=== PATIENT | female | born 1985 | race Caucasian/White ===

== ENCOUNTER 2016-11-03 04:58 | Emergency (ER) | payer SELFPAY ==
[~2016-11-03] VITALS: Ht 162.6 cm; Wt 104.0 kg
[~2016-11-03 04:58] MED LIST: Z.0.NO CURRENT MEDS
[2016-11-03 05:00] VITALS: BP 165/87; PULSE 104; RESP 18; TEMP 98.5; O2SAT 98
[2016-11-03] MEDS ORDERED: ALBU0.08 NEB (05:50)
[2016-11-03] MEDS ORDERED: ALBU6.7H INH (05:50)
[2016-11-03] MEDS ORDERED: PRED-503 PO (05:50)
[2016-11-03] MEDS ORDERED: ZITH250T PO (05:50)
--- NOTE | 2016-11-03 05:52 | PD ---
HPI Chief Complaint: Cold / Flu Symptoms Time Seen by Provider: 05:50 Travel History International Travel<30 days: No Contact w/Intl Traveler<30days: No Traveled to known affect area: No History of Present Illness HPI 31-year-old white female presents to emergency department with a two-week history of cough and congestion. She states that she was seen at a urgent care 1 week ago when she initially had gotten sick. She was given a prescription for cough medicine. She states that her symptoms now have progressed to include subjective fever and chills, green sputum, shortness of breath, wheezing , pleuritic chest wall pain, and a single episode of posttussive emesis. She has been using her son's albuterol nebulizer and her 's albuterol MDI. Symptoms are worse with cough and activity. Improvement with albuterol. She denies any nausea. No abdominal pain. No dysuria or frequency. No rashes or lesions. PFSH Past Medical History Medical History: Denies Significant Hx Blood Disorders: No Tetanus Vaccination: < 5 Years ?: Not LMP: 3 WKS AGO : 1 Para: 1 Past Surgical History Surgical History: No Previous Surgery Social History Alcohol Use: No Tobacco Use: Yes (/2 PPD) Substance Use: No Allergies-Medications (Allergen,Severity, Reaction): Coded Allergies: No Known Allergies (Verified , 11/03/16) Reported Meds & Prescriptions Reported Meds & Active Scripts Active Zithromax (Azithromycin) 250 Mg Tab 250 Mg PO DIRECTED Take 2 tabs (500 mg) on day 1 then 1 tab daily x 4 days. Deltasone (Prednisone) 20 Mg Tab 20 Mg PO TID Proventil Hfa 6.7 GM Inh (Albuterol Sulfate) 90 Mcg/Act Aer 2 Puff INH Q6H PRN Albuterol Neb (Albuterol Sulfate) 2.5 Mg/3 Ml Neb 2.5 Mg NEB Q4HR NEB While awake Review of Systems Except as stated in HPI: all other systems reviewed are Neg Physical Exam Narrative GENERAL: Well-developed, well-nourished in no acute distress. Nontoxic appearing. HEAD: Normocephalic, atraumatic. EYES: Pupils equal round and reactive. Extraocular motions intact. No scleral icterus. No injection or drainage. ENT: TMs clear without erythema. The external auditory canals clear. Nose: clear . Posterior pharynx is pink and moist. No tonsillar edema or exudate. Uvula midline. Airway patent. NECK: Trachea midline.Supple, nontender, moves head freely. No central bony tenderness or spasm. CARDIOVASCULAR: Regular rate and rhythm without murmurs, gallops, or rubs. RESPIRATORY: Scattered rhonchi with expiratory wheeze. No Rales. No respiratory distress. GASTROINTESTINAL: Abdomen soft, non-tender, nondistended. No hepato-splenomegaly , or palpable masses. No guarding. EXTREMITIES: No clubbing, cyanosis, or edema. No joint tenderness, effusion, or edema noted. BACK: Nontender without deformity or crepitance. No flank tenderness. Data Data Last Documented VS Vital Signs Date Time Temp Pulse Resp B/P Pulse Ox O2 Delivery O2 Flow Rate FiO2 11/03/16 05:00 98.5 104 18 165/87 98 [facility] Medical Decision Making Medical Screen Exam Complete: Yes Emergency Medical Condition: Yes Medical Record Reviewed: Yes Differential Diagnosis MDM: High Differential diagnoses: Pneumonia, bronchitis, URI, asthma, RAD, legionnaire's disease, SARS, ARDS, influenza, bronchiolitis, RSV,PE,CHF Narrative Course This is bronchitis with RAD Diagnosis Primary Impression: bronchitis with RAD Patient Instructions: General Instructions Additional Instructions: Rest. Increase fluids. Tylenol and Advil. Robitussin-DM. Zithromax, prednisone, and albuterol. Followup with your DrQuinton in one week. Return to the ER for any problems. Med/Other Pt SpecificInfo: Prescription(s) given Scripts Azithromycin (Zithromax)250 Mg Fep372 Mg PO DIRECTED #6 TAB Take 2 tabs (500 mg) on day 1 then 1 tab daily x 4 days. Prov:Yusra Manuel MD 11/03/16 Prednisone (Deltasone)20 Mg Tab20 Mg PO TID #15 TAB Prov:Yusra Manuel MD 11/03/16 Albuterol 6.7 GM Inh (Proventil Hfa 6.7 GM Inh)90 Mcg/Act Aer2 Puff INH Q6H PRN (SHORTNESS OF BREATH) #1 INHALER Prov:Yusra Manuel MD 11/03/16 Albuterol Neb 2.5 Mg/3 Ml Neb2.5 Mg NEB Q4HR NEB #60 NEBULE While awake Prov:Yusra Manuel MD 11/03/16 Disposition: 01 DISCHARGE HOME Condition: Stable Harpreet Stone Nov 03, 2016 05:52
== END 2016-11-03 06:46 | disposition home or self-care (01) ==
LOC: NEPB 04:58
DX: J20.9 Acute bronchitis, unspecified (principal); J45.909 Unspecified asthma, uncomplicated; F17.210 Nicotine dependence, cigarettes, uncomplicated
CPT/HCPCS: 99283